=== PATIENT | male | born 1940 | race Caucasian/White ===

== ENCOUNTER 2024-04-30 15:33 | Inpatient (IN) | payer OTHER ==
[~2024-04-30] VITALS: Ht 175.3 cm; Wt 94.8 kg
[2024-04-30 16:54] LABS: BASOPHILS % 0.9 % (0.0-2.0); EOSINOPHILS % 10.8 % (0.0-5.0); HEMOGLOBIN. 12.3 g/dL (12.0-16.0); MEAN CORPUSCULAR HEMOGLOBIN 28.7 pg (28.0-32.0); MEAN CORPUSCULAR HGB CONC 31.6 g/dL (31.0-37.0); MEAN CORPUSCULAR VOLUME 90.9 fL (81.0-99.0); MEAN PLATELET VOLUME 9.6 fl (7.4-10.4); MONOCYTES % 8.1 % (2.0-8.0); NEUTROPHILS % 71.2 % (40.0-76.0); PLATELET 146 x1000/uL (130-400); RED BLOOD CELL COUNT 4.29 mill/uL (4.2-5.4); RED CELL DISTRIBUTION WIDTH 17.4 % (11.6-14.6); WHITE BLOOD COUNT 9.1 x1000/uL (4.5-11.0)
[2024-04-30 17:05] LABS: POTASSIUM 4.6 mEq/L (3.5-5.1)
[2024-04-30 17:11] LABS: CREATININE 2.1 mg/dL (0.6-1.0)
[2024-04-30 17:23] LABS: INR 1.3; PARTIAL THROMBOPLASTIN TIME 46.1 sec (23.4-31.0); PROTHROMBIN TIME 14.5 sec (9.6-11.0)
[2024-04-30] MEDS: SODIUM CHLORIDE 0.9% 1,000 ML IV ONE (17:40)
[2024-04-30 18:15] LABS: CLARITY URINE CLOUDY (CLEAR); COLOR URINE RED (YELLOW)
[2024-04-30 19:24] LABS: GLUCOSE URINE NEGATIVE (NEGATIVE); PH URINE 6.5 (4.5-8.0); PROTEIN URINE 4+ (NEGATIVE); SPECIFIC GRAVITY URINE 1.017 (1.005-1.030)
[2024-04-30 19:25] LABS: KETONES URINE NEGATIVE (NEGATIVE); LEUKOCYTE ESTERASE URINE TRACE (NEGATIVE); NITRITE URINE NEGATIVE (NEGATIVE); OCCULT BLOOD URINE 3+ (NEGATIVE); UROBILINOGEN URINE 0.2 E.U./dL (0.2-1.0)
[2024-04-30 19:26] LABS: SQUAMOUS EPITHELIAL CELL URINE FEW /lpf (RARE/1+)
[2024-04-30 19:27] LABS: BACTERIA URINE TRACE; RBC URINE TNTC /hpf (0-2); YEAST URINE NONE SEEN
[2024-04-30] MEDS: CEFTRIAXONE 1GM/50ML 100 ML IV NR (19:39)
[2024-04-30 22:58] VITALS: BP 115/66; PULSE 75; PULSE 76; RESP 18; TEMP 36.89184; TEMP 36.974; O2SAT 98
[2024-04-30] MEDS ORDERED: LEVO25TA7 MT (23:46)
[2024-04-30] MEDS ORDERED: AMLO2.5T45 MT (23:46)
[2024-04-30] MEDS ORDERED: METO25TA6 MT (23:46)
[2024-04-30] MEDS ORDERED: ENAL2.5T69 MT (23:46)
[2024-04-30] MEDS ORDERED: ATOR10TA69 MT (23:46)
[2024-05-01] MEDS ORDERED: ONDANSETRON HCL 4MG/2ML INJ IV PRN (00:45)
[2024-05-01] MEDS ORDERED: ACETAMINOPHEN 650MG SUPP PR PRN (00:45)
[2024-05-01] MEDS ORDERED: IPRATROPIUM/ALBUTEROL 0.5-3(2.5)MG/3ML NEB HHN PRN (00:45)
[2024-05-01] MEDS ORDERED: DEXTROSE 50% WATER 50ML SYRINGE IV PRN (02:45)
[2024-05-01] MEDS: SODIUM CHLORIDE 0.9% 1,000 ML IV ONE (03:08)
[2024-05-01 04:00] VITALS: BP 118/68; PULSE 74; RESP 18; TEMP 36.55848; O2SAT 99
[2024-05-01 04:36] LABS: HEMATOCRIT 35.2 % (42.0-52.0); HEMOGLOBIN 11.8 g/dL (14.0-18.0)
[2024-05-01 04:55] LABS: CREATINE KINASE MB FRACTION 4.7 ng/mL (0.5-3.6)
[2024-05-01 04:56] LABS: TROPONIN I HIGH SENSITIVITY 35 ng/L (3.0-53)
[2024-05-01 04:57] LABS: CREATINE KINASE 86 IU/L (46-171)
[2024-05-01 05:11] LABS: HEPATITIS B SURFACE ANTIGEN NEGATIVE (Negative)
[2024-05-01 05:33] LABS: HEPATITIS C AB NON REACTIVE (Neg) (Negative)
[2024-05-01] MEDS: BLOOD SUGAR DIAGNOSTIC STRIP TEST SCH (07:40)
[2024-05-01] MEDS: INSULIN LISPRO 100 UNITS/ML SUBCUT SCH (08:10)
[2024-05-01 08:33] VITALS: BP 122/57; PULSE 67; RESP 18; TEMP 36.16956; O2SAT 98
[2024-05-01] MEDS: METOPROLOL TARTRATE 25MG TABLET PO SCH (09:07)
[2024-05-01] MEDS: LEVOTHYROXINE SODIUM 25MCG TABLET PO SCH (09:07)
[2024-05-01 11:36] LABS: HEMATOCRIT 37.9 % (42.0-52.0)
[2024-05-01 11:51] VITALS: BP 132/60; PULSE 75; RESP 18; TEMP 36.28068; O2SAT 98
[2024-05-01 13:10] LABS: HEMATOCRIT 38.2 % (42.0-52.0); HEMOGLOBIN 12.1 g/dL (14.0-18.0)
[2024-05-01 13:19] LABS: CREATINE KINASE MB FRACTION 5.2 ng/mL (0.5-3.6)
[2024-05-01 16:03] VITALS: BP 124/57; PULSE 79; RESP 18; TEMP 36.3918; O2SAT 97
[2024-05-01 18:59] LABS: HEMATOCRIT 38.2 % (42.0-52.0); HEMOGLOBIN 12.4 g/dL (14.0-18.0)
[2024-05-01 20:00] VITALS: BP 141/52; PULSE 68; RESP 18; TEMP 36.55848; O2SAT 97
[2024-05-01] MEDS: FAMOTIDINE 20MG TABLET PO SCH (20:41)
[2024-05-01 21:57] LABS: HEMOGLOBIN 13.2 g/dL (14.0-18.0)
[2024-05-02] VITALS: BP 145/79; PULSE 68; RESP 19; TEMP 36.22512; O2SAT 96
[2024-05-02 04:00] VITALS: BP 141/75; PULSE 71; RESP 19; TEMP 36.55848; O2SAT 99
[2024-05-02 06:14] LABS: CARBON DIOXIDE 20 mEq/L (21-32); CHLORIDE 110 mEq/L (98-107); POTASSIUM 4.6 mEq/L (3.5-5.1); SODIUM 139 mEq/L (136-145)
[2024-05-02 06:15] LABS: CALCIUM 8.7 mg/dL (8.7-10.4)
[2024-05-02 06:19] LABS: CREATININE 1.7 mg/dL (0.6-1.3); GLUCOSE 163 mg/dL (70-105)
[2024-05-02 06:20] LABS: LDL CHOLESTEROL 56 mg/dL (5-100); TRIGLYCERIDE 127 mg/dL (0-150); UREA NITROGEN BLOOD 22 mg/dL (9-23)
[2024-05-02 06:21] LABS: CHOLESTEROL 114 mg/dL (<200)
[2024-05-02 06:22] LABS: HDL CHOLESTEROL 39 mg/dL (>55)
[2024-05-02 06:23] LABS: T4 FREE 0.29 ng/dL (0.89-1.76)
[2024-05-02 06:31] LABS: BASOPHILS % 0.7 % (0.0-2.0); EOSINOPHILS % 8.8 % (0.0-5.0); HEMATOCRIT. 36.9 % (42.0-52.0); HEMOGLOBIN. 12.2 g/dL (14.0-18.0); LYMPHOCYTES % 8.4 % (20.0-50.0); MEAN CORPUSCULAR HEMOGLOBIN 29.1 pg (28.0-32.0); MEAN CORPUSCULAR HGB CONC 33.1 g/dL (31.0-37.0); MEAN CORPUSCULAR VOLUME 88.2 fL (80.0-94.0); MEAN PLATELET VOLUME 9.7 fl (7.4-10.4); MONOCYTES % 6.6 % (2.0-8.0); NEUTROPHILS % 75.5 % (40.0-76.0); PLATELET 123 x1000/uL (130-400); RED BLOOD CELL COUNT 4.19 mill/uL (4.7-6.1); RED CELL DISTRIBUTION WIDTH 16.7 % (11.6-14.6); WHITE BLOOD COUNT 8.1 x1000/uL (4.5-11.0)
[2024-05-02 06:35] LABS: THYROID STIMULATING HORMONE > 150.00 uIU/mL (0.55-4.78)
[2024-05-02 08:06] VITALS: BP 131/71; PULSE 81; RESP 18; TEMP 36.28068; O2SAT 97
[2024-05-02 11:34] VITALS: BP 137/84; PULSE 68; RESP 18; TEMP 36.22512; O2SAT 97
[2024-05-02 15:14] VITALS: BP 137/84; PULSE 68; TEMP 97.2; O2SAT 97
[2024-05-02 15:39] VITALS: BP 142/81; PULSE 68; RESP 18; TEMP 36.28068; O2SAT 96
== END 2024-05-02 16:45 | disposition home or self-care (01) | DRG 696 ==
LOC: ER 15:33 → 7WST 19:41 → EDSEX 19:41 → EDBEDREQ 19:57 → EDBEDREQTM 19:57
PROVIDERS: ADMIT Internal Medicine; ATTEND Internal Medicine
DX: R31.9 Hematuria, unspecified (principal); F03.92 Unspecified dementia, unspecified severity, with psychotic disturbance; E11.21 Type 2 diabetes mellitus with diabetic nephropathy; I50.9 Heart failure, unspecified; I11.0 Hypertensive heart disease with heart failure; I48.91 Unspecified atrial fibrillation; D64.9 Anemia, unspecified; N17.9 Acute kidney failure, unspecified; Z79.02 Long term (current) use of antithrombotics/antiplatelets; Z79.899 Other long term (current) drug therapy; Z80.3 Family history of malignant neoplasm of breast; Z95.2 Presence of prosthetic heart valve
CPT/HCPCS: 36415; 71045; 74176; 76770; 80048; 80061; 81003; 82550; 82553; 82962; 83036; 83880; 84439; 84443; 84484; 85014; 85018; 85025; 86705; 86850; 86900; 87340; 93005; 99285; A4606; J0696; J1815; J7030